=== PATIENT | male | born 1995 | race Caucasian/White ===

== ENCOUNTER 2022-10-20 14:50 | Emergency (ER) | payer BC, OTHER, SELFPAY ==
[2022-10-20 15:40] LABS: Bilirubin Neg (Negative); Blood, Urine Negative (Negative); Clarity Clear (Clear); Glucose, Urine (Dipstick) 100 mg/dL (Negative); Ketone, Urine 5 mg/dL (Negative); Leukocyte Negative (Negative); Nitrite Negative (Negative); Protein, Urine (Dipstick) 15 mg/dl (Neg-Trace); Specific Gravity, Urine 1.025 (1.005-1.030); Urobilinogen Normal mg/dL (Less than 2)
[2022-10-21 11:03] LABS: Chlam.trachomatis by PCR,Urine Not Detected (NotDetected)
== END 2022-10-20 17:35 | disposition home or self-care (01) ==
LOC: CSHERS 14:50
DX: N45.1 Epididymitis (principal)
CPT/HCPCS: 36416; 76870; 81003; 87491; 87591; 93976